=== PATIENT | female | born 1945 | race Caucasian/White ===

== ENCOUNTER 2021-01-15 23:11 | Emergency (ER) | payer MEDICARE, BC ==
[~2021-01-15] VITALS: Ht 167.6 cm; Wt 81.6 kg
[~2021-01-15 23:11] MED LIST: ALPR0.254 PO; ALPR0.5T PO; AMIO200T PO; AMIO200T6 PO; AMLO-169 PO; BUDE0.5A3 IH; CARV6.25 PO; CHOL10002 PO; CHOL200074 PO; CRAN300T PO; DICY10CA3 PO; DIGO125T3 PO; DULO60CA7 PO; FLEC100T PO; FURO-80 PO; FURO-81 PO; HYDR12.53 PO; LACT1CAP20 PO; LACT1CAP34 PO; LOSA100T14 PO; MELA2.5T PO; Methylprednisolone Sod Succ IV; NEBI10TA3 PO; OMEP40CA41 PO; ONDA4TAB7 PO; PANT40TA3 PO; POLY17PO5 PO; RANO500T2 PO; RIVA15TA PO; TIZA4CAP PO; TRAM50TA PO; WARF2TAB PO; WARF2TAB98 PO; WARF4TAB65 PO; [UNRECOGNIZED DRUG - CODE] PO; [UNRECOGNIZED DRUG - CODE] PO
--- NOTE | 2021-01-15 23:11 | NUR ---
ARRIVAL PATIENT ARRIVED, CPR IN PROGRESS. EMS STATED THAT PATIENT WAS SITTING UP IN RECLINER AT HOME WHEN NOTED THAT SHE COUGHED UP BRIGHT RED BLOOD THEN WENT UNRESPONSIVE. CALLED 911 AND INITIATED CPR. EMS CONTINUED CPR UPON THEIR ARRIVAL NOTING VFIB ON THEIR MONITOR. SHOCKS APPLIED. ROSC OBTAINED. EMS STATED PATIENT LOST PULSE IN ROUTE TO ED, CPR INITIATED. VFIB NOTED, 7X SHOCKS APPLIED TO PATIENT WITH NO ROSC. CPR CONTINUED UPON 2311 ARRIVAL TO ED. PATIENT HAS COPIOUS AMOUNTS OF BRIGHT RED DRAINAGE FROM MOUTH, NOSE. LMA IN PLACE, REMOVED BY DR. FRANKEL. MONITOR READING PEA 38 WITH PACER SPIKES NOTED. NO BLOOD PRESSURE NOTED WITH MULTIPLE ATTEMPTS. RR 16 PER AMBU BAG, SATS 66% NO TEMP TAKEN AT THIS TIME. CONNECTED TO DEFIBRILLATOR, PEA NOTED. ACLS PROTOCOL INITIATED, SEE FLOW SHEET FOR CODE BLUE DETAILS.
[2021-01-15] MEDS ORDERED: SODIUM BICARBONATE IV ONE (23:12)
[2021-01-15] MEDS ORDERED: EPINEPHRINE IV ONE (23:12)
--- NOTE | 2021-01-15 23:50 | NUR ---
FAMILY DR. FRANKEL ESCORTED FAMILY TO BEDSIDE, SPOKE TO FAMILY REGARDING EVENTS.
--- NOTE | 2021-01-16 00:01 | ER.PDOC ---
General Chief Complaint: Requesting Medical Care Stated Complaint: CARDIAC ARREST TRAVEL OUT OF US: No Time seen by MD: 23:11 Source: family, EMS Exam Limitations: clinical condition History of Present Illness Initial Comments Patient arrived via EMS with CPR in progress. Per EMS and later family, the patient has been dealing with nausea and ingestion for several months. This evening she began coughing up blood tinged sputum and became lightheaded and lost consciousness as her was getting her ready to come to the ED for evaluation.She stopped breathing and became pulseless. CPR was initiated and EMS was called. When EMS arrived she was in V fib. She was shocked several times and several rounds of epi were given. LMA airway was placed and copious amount of bllod was suctioned from airway. They initially had ROSC but again lost pulse on the way to the ED. Total downtime was over 30 minutes with at least 15 minutes of CPR since the last ROSC upon arrival. There was no reported chest pain or other complaints prior to the episode of coughing/ weakness this evening. No further history is obtainable at this time Allergies: Coded Allergies: lorazepam (Verified Allergy, Severe, HALLUCINATIONS, 07/20/16) Penicillins (Unverified Allergy, Unknown, unknown, 07/20/16) cefuroxime (Verified Allergy, Unknown, 12/16/14) NAUSEA codeine (Unverified Allergy, Unknown, 02/13/15) desvenlafaxine (Verified Allergy, Unknown, 12/16/14) OUT OF TOUCH WITH EVERYTHING erythromycin base (Verified Allergy, Unknown, 07/20/16) linaclotide (Verified Allergy, Unknown, 12/16/14) SEVERE DIARRHEA nitrofurantoin (Verified Allergy, Unknown, 07/20/16) DIARRHEA oxytetracycline (Unverified Allergy, Unknown, 02/13/15) paroxetine (Verified Allergy, Unknown, 12/16/14) pregabalin (Verified Allergy, Unknown, 12/16/14) CAUSES MORE PAIN AND TIREDNESS albuterol (Verified Adverse Reaction, Unknown, INCREASED HEART RATE, SE KERMIT ANXIETY, SHAKENESS, 07/20/16) Uncoded Allergies: AMIZILA (Allergy, Unknown, 02/13/15) CLOTH TAPE (Allergy, Unknown, 07/20/16) Home Meds Reported Medications Furosemide (LASIX) 20 Mg Tablet, 1 TAB PO DAILY, #90 TAB 1 Refill 07/27/16 Amlodipine Besylate (AMLODIPINE BESYLATE) 5 Mg Tablet, 1 TAB PO DAILY, #30 TAB 5 Refills 07/27/16 Carvedilol 6.25MG (COREG 6.25MG) 6.25 Mg Tablet, 1 TAB PO BID, #180 TAB 1 Refill 07/20/16 Lactobacillus Acidophilus (Probiotic) 1 Each Capsule, 1 EACH PO DAILY, CAPSULE 07/20/16 Alprazolam (XANAX) 0.5 Mg Tablet, 1 TAB PO TID, #90 TAB 07/20/16 Tramadol Hcl (TRAMADOL HCL) 50 Mg Tablet, 2 TAB PO TID PRN for PAIN, #90 TAB 07/20/16 Pantoprazole Sodium (PROTONIX) 40 Mg Tablet.dr, 1 TAB PO DAILY, #30 TAB 5 Refills 07/20/16 Ondansetron Hcl (ZOFRAN) 4 Mg Tablet, 4 MG PO Q4 PRN for NAUSEA, TABLET 07/20/16 Polyethylene Glycol 3350 (MIRALAX) 17 Gm Powd.pack, 1 PKT PO DAILY, #30 PKT 3 Refills 07/20/16 Docusate Sodium (DOC-Q-LACE) 100 Mg Capsule, 100 MG PO BID, CAPSULE 07/20/16 Melatonin (MELATONIN) 2.5 Mg Tab.chew, 2.5 MG PO HS, TAB.CHEW 07/20/16 Cranberry Extract (CRANBERRY) 300 Mg Tablet, 300 MG PO TID, TABLET 07/20/16 Cholecalciferol (Vitamin D3) (VITAMIN D-3) 2,000 Unit Capsule, 94154 UNIT PO VALERIE LY, CAPSULE 07/20/16 Tizanidine Hcl (TIZANIDINE HCL) 4 Mg Capsule, 4 MG PO Q8, CAPSULE 07/20/16 Rivaroxaban (XARELTO) 15 Mg Tablet, 15 MG PO DAILY, TABLET 07/20/16 Amiodarone Hcl (CORDARONE) 200 Mg Tablet, 100 MG PO BID, TABLET 07/20/16 Duloxetine Hcl (CYMBALTA) 60 Mg Capsule.dr, 60 MG PO DAILY 12/17/14 Past Medical History Medical History: arrhythmia, cardiac problems Surgical History: cholecystectomy, other Social History Drug Use: none Reviewed Nursing Reviewed: Vital Signs, Abn. Noted, Nursing Assessment Review of Systems Hematologic/Lymphatic: other (unable to obtain secondary to medical condition) Physical Exam General Appearance: Other (pale, unresponsive, CPR in progress with LMA in place with ffrothy blood in the airway tube) EENT: other (pupils fixed. Corneal reflex negative. LMA in place. Blood in the oral pharynx) Neck: Other (trachea midline) Respiratory: other (rhochorous breath sounds with ambu-bag ventilation. No spontaneous respirations ) CVS: other (pacemaker, no pulses palpated) Gastrointestinal: Soft, Other (no bowel sounds auscultated) Back: Other (no signs of trauma) Extremities: Other (IO to left shoulder and right tibia) Neurologic/Psychiatric: Other (non gag reflex, pupils fixed, negative corneal reflex, no spontaneous respirations) Skin: Pallor Intubation Intubation : Blade: glidescope Tube Size (cm): 7.5 Lip Line (cm): 24 Preoxygenated: Yes Breath Sounds after Intubation: equal Intubation Complications: apparent aspiration Post Intubation Xray: No Progress 7.5 ETT placed via glidescope with bougie assistance. Copious blood in the airway suctioned. Lip line secured at 24. B/L breath sounds auscultated. Color change x 6 on ETCO2. Progress Progress Patient immediately assessed upon arrival. ACLS protocol followed. PEA due to pacer spikes on monitor. LMA was removed and 7.5 ETT was placed via glidescope. Copious blood suctioned from airway. Despite continued CRP and multiple rounds of epinephrine and bicarb, patient had no change in condition. Bedside US showed no organized cardiac activity. Given the amount of downtime and clinical condition, further resuscitative efforts were deemed futile. There were no objections voiced to stopping the code and time of was called at 2328. Family was notified and all questions were addressed ER DEPART Departure Time of Disposition: 23:28 Disposition: 20 Impression: Primary Impression: Cardiac arrest Condition: Referrals: KEM POOL MD (PCP) PRIMARY CARE PROVIDER Duration or Time Spent with Pa: 25 Critical Care Note Total Time (mins): 31 DEVANG FRANKEL MD Jan 16, 2021 00:01
--- NOTE | 2021-01-16 01:23 | NUR ---
CPT PERFORMED PER ACLS PROTOCOL. ATTEMPTED INTUBATION X 2 AND ACHIEVED ON SECOND ATTEMPT. PT HAD COPIOUS AMOUNTS OF BLEEDING UPON ARRIVAL. GOOD CHEST RISE NOTED. ROSC NOT ACHIEVED. CPT DISCONTINUED AT 2328 Addendum: 01/16/21 at 0125 by NATE GAGE, PICTURE HANGER, FT RT Amended: Links added.
--- NOTE | 2021-01-16 03:38 | NUR ---
DR. FRANKEL REQUESTED A BOUGIE FOR INTUBATION TO USE WITH GLIDEASCOPE. FIRST ATTEMPT FOR INTUBATION WAS WITH A 7.5 ETT AND A STYLET/DR. FRANKEL REQUESTED A BOUGIE FOR INTUBATION TO USE WITH GLIDEASCOPE FOR SECOND ATTEMPT WHICH WAS SUCCESSFUL Addendum: 01/16/21 at 0341 by NATE GAGE RRT, FT RT Amended: Links added.
== END 2021-01-15 23:28 | disposition expired ==
LOC: EDBD 23:11 → ER 23:11
DX: I46.9 Cardiac arrest, cause unspecified (principal); Z79.01 Long term (current) use of anticoagulants; Z79.899 Other long term (current) drug therapy; Z88.1 Allergy status to other antibiotic agents; Z88.0 Allergy status to penicillin; Z88.5 Allergy status to narcotic agent; Z88.8 Allergy status to other drugs, medicaments and biological substances; Z90.49 Acquired absence of other specified parts of digestive tract
CPT/HCPCS: 31500; 92950; 99285; J0171; J3490